=== PATIENT | male | born 1985 | race African-American/Black ===

== ENCOUNTER 2019-01-27 10:05 | Emergency (ER) | payer OTHER ==
[~2019-01-27] VITALS: Ht 188 cm; Wt 81.6 kg
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
[2019-01-27 11:20] VITALS: BP 147/102
== END 2019-01-27 11:20 ==
LOC: EDBD 10:05 → ER FS 10:05
DX: F19.20 Other psychoactive substance dependence, uncomplicated (principal); F22 Delusional disorders
CPT/HCPCS: 99283

== ENCOUNTER 2019-03-24 13:43 | Emergency (ER) | payer OTHER ==
[~2019-03-24] VITALS: Ht 198.1 cm; Wt 68.0 kg
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
[2019-03-24] MEDS ORDERED: ABILIFY (14:31)
--- NOTE | 2019-03-24 14:31 | NUR ---
PT DOES NOT ANSWER MANY QUESTIONS. POLICE ANSWERING SOME QUESTIONS FOR HIM.
[2019-03-24 14:38] VITALS: BP 148/87
== END 2019-03-24 14:38 ==
LOC: EDUNIT# 13:43 → ER FS 13:46
DX: F15.10 Other stimulant abuse, uncomplicated (principal); Z02.89 Encounter for other administrative examinations
CPT/HCPCS: 99281

== ENCOUNTER 2019-03-28 09:06 | Emergency (ER) | payer OTHER ==
[~2019-03-28] VITALS: Ht 198.1 cm; Wt 68.0 kg
[~2019-03-28 09:06] MED LIST: ABILIFY
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
[2019-03-28 09:30] VITALS: BP 178/108
== END 2019-03-28 09:29 ==
LOC: EDUNIT# 09:06 → ER FS 09:08
DX: F15.20 Other stimulant dependence, uncomplicated (principal)
CPT/HCPCS: 99283

== ENCOUNTER 2019-09-20 11:30 | Emergency (ER) | payer OTHER ==
[~2019-09-20] VITALS: Ht 190 cm; Wt 90.0 kg
--- NOTE | 2019-09-20 11:43 | ED General ---
History of Present Illness Date Seen by Provider: Sep 20, 2019 Time Seen by Provider: 11:54 Initial Comments 34-year-old male has been here several times in the last several months, all for episodes of uncontrolled behavior thought likely to be related to substance abuse his behavior is so out of control that he is currently handcuffed and attended by police personnel both [facility] and [facility] all law enforcement and nursing personnel state that that this has happened multiple times in the past Patient is completely uncooperative with attempts to take history he is up in the room pacing about with handcuffs on and the police personnel are standing by Allergies and Home Medications Allergies Coded Allergies: No Known Drug Allergies (Unverified , 03/24/19) Patient Home Medication List Home Medication List Reviewed: Yes Review of Systems Review of Systems Constitutional: no symptoms reported EENTM: no symptoms reported Respiratory: no symptoms reported Cardiovascular: no symptoms reported Genitourinary: no symptoms reported Musculoskeletal: no symptoms reported Skin: no symptoms reported Psychiatric/Neurological: No Symptoms Reported Past Rhrazpx-Tjyhop-Atutob Hx Patient Social History Drug of Choice: history of methamphetamine use Recent Foreign Travel: No Recent Hopitalizations: No Seasonal Allergies Seasonal Allergies: No Past Medical History Respiratory: No Cardiac: No Neurological: No Genitourinary: No Gastrointestinal: No Musculoskeletal: No Endocrine: No HEENT: No Cancer: No Psychosocial: Yes ("CHEMICAL IMBALENCE") Integumentary: No Physical Exam Vital Signs Vital Signs - First Documented 09/20/19 11:30 Temp 36.4 Pulse 112 Resp 18 B/P (MAP) 144/101 (115) Pulse Ox 100 O2 Delivery Room Air Capillary Refill : Height, Weight, BMI Height: 6'6.00" Weight: 150lbs. oz. 68.061332in; BMI Method:Stated General Appearance: WD/WN, Anxious Eyes: Bilateral Eye PERRL, Bilateral Eye EOMI HEENT: Moist Mucous Membranes Respiratory: Lungs Clear Cardiovascular: Regular Rate, Rhythm (tachy) Progress/Results/Core Measures Suspected Sepsis SIRS Temperature: Pulse: Respiratory Rate: Blood Pressure / Mean: Results/Orders Vital Signs/I&O 09/20/19 11:30 Temp 36.4 Pulse 112 Resp 18 B/P (MAP) 144/101 (115) Pulse Ox 100 O2 Delivery Room Air Capillary Refill : Progress Note : Progress Note Patient was asked if he was suffering from any illness or needed any medical attention He never responded with any concerns There is no evidence of acute illness or neurologic or cardiac event police officers are simply requesting that we pronounced him medically cleared for incarceration which has been done several times before Departure Impression Primary Impression: Behavioral disorder Disposition: 01 HOME, SELF-CARE Condition: Improved Departure-Patient Inst. Decision time for Depature: 11:43 Referrals: NO,LOCAL PHYSICIAN (PCP/Family) Primary Care Physician Add. Discharge Instructions: Patient is medically cleared for incarceration SHIMON NIELSON MD Sep 20, 2019 11:43 POS
[2019-09-20 11:50] VITALS: BP 144/101
--- OUTSIDE RECORDS SUMMARY | 2019-10-14 05:32 | XMS REPORT | Continuity of Care Document ---
Author Organization Unknown POS Address Unknown SP Phone Unavailable SP Allergies Active Description Code Type Severity POS Reaction Onset Reported/Identified POS to Patient Clinical Status POS Yes No Known Drug Allergies [id number] Drug SP Unknown N/A 03/24/2019 SP SP Medications There is no data. 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 89 SP FOR OTHER ADMINISTRATIVE EXAMI SP 04/01/2019 YEN KLEIN MD Ot F15. 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 20 SP STIMULANT DEPENDENCE, UNCOMPLICATE SP 09/24/2019 NISREEN SALDAÑA, SHIMON Grigsby Ot F91. 9 SP DISORDER, UNSPECIFIED SP Procedures There is no data. Results There is no data. Encounters ACCT No. Visit Date/Time Discharge Status POS Pt. Type Provider Facility Loc./Un it POS Complaint POS [id number] 09/20/2019 11:31:00 11/01/2 019 11:55:00 SP DIS Outpatient NISREEN SALDAÑA, SHIMON Grigsby [facility] FS MEDICAL CLEARANCE SP [id number] 03/28/2019 09:08:00 09:29:00 SP DIS Outpatient ERNIE SALDAÑA, YEN Jaimes [facility] FS MED CLEARANCE SP [id number] 03/24/2019 13:46:00 14:38:00 SP DIS Emergency MAHI GOMEZ DO [facility] ER FS BROUGHT IN BY POLICE - MED E BULL [id number] 01/27/2019 10:05:00 11:20:00 SP DIS Emergency BETSEY REILLY DO [facility] ER FS BROUGHT IN BY POLICE - MEDIC AL SP
== END 2019-09-20 11:55 | disposition home or self-care (01) ==
LOC: EDUNIT# 11:30 → ER FS 11:31
DX: F91.9 Conduct disorder, unspecified (principal)
CPT/HCPCS: 99283

== ENCOUNTER 2019-11-19 12:23 | Observation (INO) | payer OTHER ==
[~2019-11-19] VITALS: Ht 190 cm; Wt 90.0 kg
--- NOTE | 2019-11-19 12:32 | ED General ---
General Source of Information: Patient, Police Exam Limitations: No Limitations History of Present Illness Date Seen by Provider: Nov 19, 2019 Time Seen by Provider: 12:22 Initial Comments The patient is a 34-year-old male well-known to this emergency department who presents for evaluation after behaving erratically. The patient is a known methamphetamine user admits to use earlier today. Per police he was bothering people by running around in the street. He denies trying to hurt himself. Police state they have seen him and exactly the same state after methamphetamine abuse. The patient states he feels good and has no complaints. He is here for medical clearance before being taken [facility]. Timing/Duration: 4-6 Hours Severity: Moderate Associated Systoms: Denies Symptoms Allergies and Home Medications Allergies Coded Allergies: No Known Drug Allergies (Unverified , 03/24/19) Patient Home Medication List Home Medication List Reviewed: Yes Review of Systems Review of Systems Constitutional: no symptoms reported EENTM: no symptoms reported Respiratory: no symptoms reported Cardiovascular: no symptoms reported Gastrointestinal: no symptoms reported Genitourinary: no symptoms reported Musculoskeletal: no symptoms reported Skin: no symptoms reported Psychiatric/Neurological: No Symptoms Reported Hematologic/Lymphatic: No Symptoms Reported Immunological/Allergic: no symptoms reported All Other Systems Reviewed Negative Unless Noted: Yes Past Muaecbr-Tmokzj-Expwpe Hx Past Med/Social Hx: Reviewed Nursing Past Med/Soc Hx Patient Social History Drug of Choice: history of methamphetamine use 2nd Hand Smoke Exposure: No Recent Foreign Travel: No Recent Hopitalizations: No Seasonal Allergies Seasonal Allergies: No Past Medical History Respiratory: No Cardiac: No Neurological: No Genitourinary: No Gastrointestinal: No Musculoskeletal: No Endocrine: No HEENT: No Cancer: No Psychosocial: Yes ("CHEMICAL IMBALENCE") Integumentary: No Physical Exam Vital Signs Vital Signs - First Documented 11/19/19 12:35 Temp 36.0 Pulse 101 Resp 24 B/P (MAP) 143/108 (120) Pulse Ox 96 Capillary Refill : Height, Weight, BMI Height: 6'6.00" Weight: 150lbs. oz. 68.242799ba; 24.00 BMI Method:Stated General Appearance: No Apparent Distress, WD/WN, Anxious HEENT: PERRL/EOMI, Normal ENT Inspection Neck: Full Range of Motion, Non Tender Respiratory: Lungs Clear, Normal Breath Sounds, No Accessory Muscle Use, No Respiratory Distress Cardiovascular: No Edema, No Murmur, Tachycardia (pt is running in place in the room and admits to recent meth use) Gastrointestinal: Normal Bowel Sounds, Non Tender, Soft Extremity: Normal Capillary Refill Neurologic/Psychiatric: Alert, No Motor/Sensory Deficits, Normal Mood/Affect Skin: Normal Color, Warm/Dry Progress/Results/Core Measures Suspected Sepsis SIRS Temperature: Pulse: Respiratory Rate: Laboratory Tests 11/19/19 13:20: White Blood Count 6.8 Blood Pressure / Mean: Laboratory Tests 11/19/19 13:20: Creatinine 1.13, Platelet Count 329, Total Bilirubin 0.2 Results/Orders Lab Results Laboratory Tests Test 11/19/19 13:20 11/19/19 15:16 Range/Units White Blood Count 6.8 4.3-11.0 10^3/uL Red Blood Count 5.01 4.35-5.85 10^6/uL Hemoglobin 14.1 13.3-17.7 G/DL Hematocrit 43 40-54 % Mean Corpuscular Volume 86 80-99 FL Mean Corpuscular Hemoglobin 28 25-34 PG Mean Corpuscular Hemoglobin Concent 33 32-36 G/DL Red Cell Distribution Width 12.9 10.0-14.5 % Platelet Count 329 130-400 10^3/uL Mean Platelet Volume 10.0 7.4-10.4 FL Neutrophils (%) (Auto) 46 42-75 % Lymphocytes (%) (Auto) 43 12-44 % Monocytes (%) (Auto) 9 0-12 % Eosinophils (%) (Auto) 1 0-10 % Basophils (%) (Auto) 1 0-10 % Neutrophils # (Auto) 3.1 1.8-7.8 X 10^3 Lymphocytes # (Auto) 2.9 1.0-4.0 X 10^3 Monocytes # (Auto) 0.6 0.0-1.0 X 10^3 Eosinophils # (Auto) 0.0 0.0-0.3 10^3/uL Basophils # (Auto) 0.1 0.0-0.1 10^3/uL Sodium Level 141 135-145 MMOL/L Potassium Level 3.2 L 3.6-5.0 MMOL/L Chloride Level 102 98-107 MMOL/L Carbon Dioxide Level 21 21-32 MMOL/L Anion Gap 18 H 5-14 MMOL/L Blood Urea Nitrogen 9 7-18 MG/DL Creatinine 1.13 0.60-1.30 MG/DL Estimat Glomerular Filtration Rate > 60 BUN/Creatinine Ratio 8 Glucose Level 127 H 70-105 MG/DL Calcium Level 9.6 8.5-10.1 MG/DL Corrected Calcium 8.5-10.1 MG/DL Total Bilirubin 0.2 0.1-1.0 MG/DL Aspartate Amino Transf (AST/SGOT) 21 5-34 U/L Alanine Aminotransferase (ALT/SGPT) 20 0-55 U/L Alkaline Phosphatase 82 40-136 U/L Total Protein 8.2 6.4-8.2 GM/DL Albumin 4.6 H 3.2-4.5 GM/DL Salicylates Level < 5.0 L 5.0-20.0 MG/DL Acetaminophen Level < 10 L 10-30 UG/ML Serum Alcohol < 10 <10 MG/DL Urine Color YELLOW Urine Clarity CLEAR Urine pH 6.0 5-9 Urine Specific Spring 1.010 L 1.016-1.022 Urine Protein NEGATIVE NEGATIVE Urine Glucose (UA) NEGATIVE NEGATIVE Urine Ketones NEGATIVE NEGATIVE Urine Nitrite NEGATIVE NEGATIVE Urine Bilirubin NEGATIVE NEGATIVE Urine Urobilinogen 0.2 < = 1.0 MG/DL Urine Leukocyte Esterase NEGATIVE NEGATIVE Urine RBC (Auto) NEGATIVE NEGATIVE Urine RBC NONE /HPF Urine WBC RARE /HPF Urine Squamous Epithelial Cells 0-2 /HPF Urine Crystals NONE /LPF Urine Bacteria NONE /HPF Urine Casts NONE /LPF Urine Mucus SMALL H /LPF Urine Culture Indicated NO Urine Opiates Screen NEGATIVE NEGATIVE Urine Oxycodone Screen NEGATIVE NEGATIVE Urine Methadone Screen NEGATIVE NEGATIVE Urine Propoxyphene Screen NEGATIVE NEGATIVE Urine Barbiturates Screen NEGATIVE NEGATIVE Ur Tricyclic Antidepressants Screen NEGATIVE NEGATIVE Urine Phencyclidine Screen NEGATIVE NEGATIVE Urine Amphetamines Screen POSITIVE H NEGATIVE Urine Methamphetamines Screen POSITIVE H NEGATIVE Urine Benzodiazepines Screen NEGATIVE NEGATIVE Urine Cocaine Screen NEGATIVE NEGATIVE Urine Cannabinoids Screen POSITIVE H NEGATIVE My Orders Orders - PATRICIA CHAMPAGNE DO Ua Culture If Indicated (11/19/19 13:08) Cbc With Automated Diff (11/19/19 13:08) Comprehensive Metabolic Panel (11/19/19 13:08) Alcohol (11/19/19 13:08) Drug Screen Stat (Urine) (11/19/19 13:08) Acetaminophen (11/19/19 13:08) Salicylate (11/19/19 13:08) Ekg Tracing (11/19/19 13:08) Bh Status Checks/Observation Q15M (11/19/19 13:08) Vital Signs/I&O 11/19/19 12:35 Temp 36.0 Pulse 101 Resp 24 B/P (MAP) 143/108 (120) Pulse Ox 96 Capillary Refill : Progress Note : Progress Note @1425 - Case d/w Dr. Foss for admission at [facility]. @1435 - Case d/w [employer]age Shift Manager for additional details on sitter need. She states she will speak with Dr. Foss and call back @1500 - Dr. Foss accepts the transfer. Waiting on sitter which is expected at 1900. ECG Initial ECG Impression Date: Nov 19, 2019 Initial ECG Impression Time: 13:29 Initial ECG Rhythm: Normal Sinus Comment Normal sinus rhythm, rate of 80, normal axis, no acute ischemic findings noted, no STEMI, reviewed and interpreted by myself Departure Impression Primary Impression: Methamphetamine abuse Additional Impressions: Acute psychosis Hypokalemia Disposition: 09 ADMITTED INPATIENT Condition: Stable Departure-Patient Inst. Referrals: NO,LOCAL PHYSICIAN (PCP/Family) Primary Care Physician PATRICIA CHAMPAGNE DO Nov 19, 2019 12:32
--- NOTE | 2019-11-19 13:28 | NUR ---
patient refusing to provide a urine sample
[2019-11-19 13:29] LABS: HEMATOCRIT 43 % (40-54); HEMOGLOBIN 14.1 G/DL (13.3-17.7); MEAN CORPUSCULAR HEMOGLOBIN 28 PG (25-34); MEAN CORPUSCULAR HGB CONC 33 G/DL (32-36); MEAN CORPUSCULAR VOLUME 86 FL (80-99); PLATELET COUNT 329 10^3/uL (130-400); RED CELL DISTRIBUTION WIDTH 12.9 % (10.0-14.5); WHITE BLOOD COUNT 6.8 10^3/uL (4.3-11.0)
[2019-11-19 13:30] LABS: BASOPHILS # (AUTO) 0.1 10^3/uL (0.0-0.1); BASOPHILS % (AUTO) 1 % (0-10); EOSINOPHILS % (AUTO) 1 % (0-10); LYMPHOCYTES # (AUTO) 2.9 X 10^3 (1.0-4.0); LYMPHOCYTES % (AUTO) 43 % (12-44); MONOCYTES # (AUTO) 0.6 X 10^3 (0.0-1.0); MONOCYTES % (AUTO) 9 % (0-12); NEUTROPHILS # (AUTO) 3.1 X 10^3 (1.8-7.8); NEUTROPHILS % (AUTO) 46 % (42-75)
[2019-11-19 14:00] LABS: BUN/CREATININE RATIO 8; CARBON DIOXIDE 21 MMOL/L (21-32); CHLORIDE 102 MMOL/L (98-107); CREATININE SERUM 1.13 MG/DL (0.60-1.30); GFR ESTIMATED > 60; POTASSIUM 3.2 MMOL/L (3.6-5.0); SODIUM 141 MMOL/L (135-145)
[2019-11-19 14:01] LABS: ALANINE AMINOTRANSFERASE 20 U/L (0-55); ALBUMIN 4.6 GM/DL (3.2-4.5); ALKALINE PHOSPHATASE 82 U/L (40-136); BILIRUBIN,TOTAL 0.2 MG/DL (0.1-1.0); CALCIUM 9.6 MG/DL (8.5-10.1); GLUCOSE 127 MG/DL (70-105); SALICYLATE < 5.0 MG/DL (5.0-20.0); TOTAL PROTEIN 8.2 GM/DL (6.4-8.2)
[2019-11-19 14:02] LABS: ACETAMINOPHEN < 10 UG/ML (10-30)
--- NOTE | 2019-11-19 15:40 | NUR ---
Patient lying on mattress, resting quietly at this time.
[2019-11-19 15:45] LABS: BILIRUBIN,URINE NEGATIVE (NEGATIVE); CLARITY,URINE CLEAR; COLOR,URINE YELLOW; GLUCOSE, URINE (UA) NEGATIVE (NEGATIVE); KETONES,URINE NEGATIVE (NEGATIVE); LEUKOCYTE ESTERASE ,URINE NEGATIVE (NEGATIVE); NITRITE,URINE NEGATIVE (NEGATIVE); PROTEIN,URINE NEGATIVE (NEGATIVE); SQUAMOUS EPITHELIAL CELL,UR 0-2 /HPF; WBC,URINE RARE /HPF
[2019-11-19 15:50] LABS: AMPHETAMINE SCREEN, URINE POSITIVE (NEGATIVE); BARBITURATE SCREEN URINE NEGATIVE (NEGATIVE); BENZODIAZEPINES SCREEN URINE NEGATIVE (NEGATIVE); CANNABINOID SCREEN, URINE POSITIVE (NEGATIVE); COCAINE SCREEN URINE NEGATIVE (NEGATIVE); METHADONE STAT NEGATIVE (NEGATIVE); METHAMPHETAMINE SCREEN URINE S POSITIVE (NEGATIVE); OPIATE SCREEN URINE NEGATIVE (NEGATIVE); OXYCODONE STAT NEGATIVE (NEGATIVE); PROPOXYPHENE STAT NEGATIVE (NEGATIVE); TRICYCLIC ANTIDEPRESSANTS SCRE NEGATIVE (NEGATIVE)
--- NOTE | 2019-11-19 15:51 | NUR ---
Received call from tyler Real, stating the patient will be going to room 415 but cannot be transferred until 7 p.m due to there not being a sitter until that time. Notified Dr Duarte.
--- NOTE | 2019-11-19 16:02 | NUR ---
Police officers have left at this time with instructions to call them back if the patient starts acting out or tries to leave.
--- NOTE | 2019-11-19 16:11 | NUR ---
Patient requesting to go outside and smoke. Informed that smoking was against policy and offered patient nicotine patch. Declined patch at this time.
--- NOTE | 2019-11-19 19:37 | NUR ---
pt to restroom without assistance, ems here for transport.
[2019-11-19 20:25] VITALS: BP 124/84
[2019-11-19] MEDS ORDERED: ACETAMINOPHEN 325 MG TABLET PO PRN (20:30)
[2019-11-19] MEDS ORDERED: DOCUSATE SODIUM 100 MG (COLACE) CAP PO PRN (20:30)
[2019-11-19] MEDS ORDERED: LORazepam INJ 2 MG/ML (ATIVAN) VIAL IM PRN (20:30)
[2019-11-19] MEDS ORDERED: HALOPERIDOL 5 MG/ML (HALDOL) AMP IM PRN (20:30)
[2019-11-19] MEDS ORDERED: guaiFENesin/DM (ROBITUSSIN DM) 10 ML UDC PO PRN (20:30)
[2019-11-19] MEDS ORDERED: ONDANSETRON 4 MG (ZOFRAN) ORAL DISSOLVE TAB PO PRN (20:30)
[2019-11-19] MEDS ORDERED: IBUPROFEN TABLET 200 MG TAB PO PRN (20:30)
[2019-11-19] MEDS ORDERED: diphenhydrAMINE 25 MG TAB (BENADRYL) PO PRN (20:30)
[2019-11-19] MEDS ORDERED: POLYETHYLENE GLYCOL 17 GM (MIRALAX) PACK PO PRN (20:30)
--- NOTE | 2019-11-19 20:30 | NUR ---
FS ED RN, RENAE TODD, REPORTED TO THIS RN THIS THAT THERE IS A NEED FOR SS CONSULT D/T PTS LIVING CONDITIONS. [facility] REPORTS HE IS HOMELESS AT TIMES WHEN NOT LIVING WITH MOTHER IN [place].
[2019-11-19 20:31] VITALS: BP 124/84
--- NOTE | 2019-11-19 21:12 | NUR ---
ROBERTO GEE admitted to room 415-1, with an admitting diagnosis of SUBSTANCE ABUSE, on 11/19/19 from [facility] , accompanied by EMT'S FROM [place]ROBERTO GEE introduced to surroundings, call light, bed controls, phone, TV, temperature control, lights, meal times, smoking policy, visitor policy, side rail policy, bathrooms and showers. Patient Rights given to patient in the handbook. ROBERTO GEE verbalizes understanding that [facility] is not responsible for the loss or damage to any personal effects or valuables that are kept in the patients posession during their hospitalization.
[2019-11-19 23:50] VITALS: BP 122/89
[2019-11-20 04:00] VITALS: BP 126/75
[2019-11-20] MEDS ORDERED: FLU QUADRIvalent (5+ YOA) 2019-2020 (AFLURIA) 0.5 ML IM ONE (07:30)
[2019-11-20 08:00] VITALS: BP 116/70
--- NOTE | 2019-11-20 11:08 | NUR ---
DISC SANDER VOICED THAT SHE WAS PULLING THE ONE ON ONE -- NOTE THAT PT HAS CAME TO DOOR AND FINDS STAFF AT DOORWAY AND WILL RETURN TO ROOM -- THIS RN IS UNSURE PT WILL STAY IN ROOM -- HE IS IN STREET [employer]OTHES
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
[2019-11-20 12:37] VITALS: BP 116/70
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
--- OUTSIDE RECORDS SUMMARY | 2019-12-18 03:42 | XMS REPORT | Continuity of Care Document ---
Author Organization Unknown Address Unknown Phone Unavailable Allergies Active Description Code Type Severity Reaction Onset Reported/Identified Relationship to Patient Clinical Status Yes No Known Drug Allergies [id number] Drug Allergy Unknown N/A 03/24/2019 Medications There [...] 20 OTHER STIMULANT DEPENDENCE, UNCOMPLICATE 04/03/2019 YEN KLEIN MD Ot F15. 20 OTHER STIMULANT DEPENDENCE, [...] Status Pt. Type Provider Facility Loc./Unit Complaint [id number] 11/19/2019 20:25:00 020 12:13:00 DIS Outpatient DANIEL MON DO [facility] 4TH METHAMPHETAMIE ABUSE, A CUTE PSYCOSIS [id number] 09/20/2019 11:31:00 019 11:55:00 DIS Outpatient SHIMON NIELSON MD [facility] FS MEDICAL CLEARANCE [id number] 03/28/2019 09:08:00 019 09:29:00 DIS Outpatient YEN KLEIN MD [facility] FS MED CLEARANCE [id number] 03/24/2019 13:46:00 14:38:00 DIS Emergency MAHI GOMEZ DO [facility] ER FS BROUGHT IN BY POLICE - MED EVAL [id number] 01/27/2019 10:05:00 019 11:20:00 DIS Emergency BETSEY REILLY DO [facility] ER FS BROUGHT IN BY POLICE - MEDICAL SCREENING
== END 2019-11-20 12:13 | disposition home or self-care (01) ==
LOC: EDUNIT# 12:23 → ER FS 12:24 → UNDOADMOB 18:48 → 4TH 18:48 → UNDOADMOB 20:25 → 4TH 20:25 → UNDODISOB 11-20 12:13
PROVIDERS: ADMIT Internal Medicine; ATTEND Internal Medicine
DX: F19.10 Other psychoactive substance abuse, uncomplicated (principal); R45.6 Violent behavior; E87.6 Hypokalemia; F32.9 Major depressive disorder, single episode, unspecified; F20.9 Schizophrenia, unspecified
CPT/HCPCS: 36415; 80053; 80306; 80320; 80329; 81000; 85025; 90471; 93005; G0378

== ENCOUNTER 2020-04-08 14:16 | Emergency (ER) | payer OTHER ==
[~2020-04-08] VITALS: Ht 188 cm; Wt 72.7 kg
[2020-04-08] MEDS ORDERED: LORazepam INJ 2 MG/ML (ATIVAN) VIAL IM ONE (14:30)
[2020-04-08] MEDS ORDERED: HALOPERIDOL 5 MG/ML (HALDOL) AMP IM ONE (14:30)
--- NOTE | 2020-04-08 15:06 | ED General ---
General Chief Complaint: Psych/Social Disorder History of Present Illness Date Seen by Provider: April 08, 2020 Time Seen by Provider: 15:03 Initial Comments Patient presenting to emergency department for evaluation of erratic behavior has he was reportedly running in traffic. He reportedly gets some sort of shot for his mental illness every month and he cut the shot on the seventh but there is a high suspicion that he use methamphetamines as he asked this way whenever he uses meth. Looking through the records it appears that he has been seen for this same exact issue multiple times in the past. Several times in police just wanted him medically cleared for incarceration but the police officers present here today are asking for him to be psychiatrically screened. I asked what their concern was and they think that he needs to be placed psychiatrically. I explained that generally if it is substance abuse induced behavior Psychiatry cannot help them. Patient is having to be restrained by police and patient is speaking erratically. (BETSEY REILLY DO) Allergies and Home Medications Allergies Coded Allergies: No Known Drug Allergies (Unverified , 03/24/19) Patient Home Medication List Home Medication List Reviewed: Yes (BETSEY REILLY DO) Review of Systems Review of Systems Will not answer review of systems questions (BETSEY REILLY DO) Constitutional: other (acute psychosis from methamphetamine use) EENTM: see HPI, no symptoms reported Respiratory: no symptoms reported Cardiovascular: no symptoms reported Gastrointestinal: no symptoms reported Genitourinary: no symptoms reported Musculoskeletal: no symptoms reported, muscle twitching (from meth use) Skin: dryness (chronic issues) Psychiatric/Neurological: Other (acute on chronic psychosis exacerbated by meth use) Hematologic/Lymphatic: No Symptoms Reported Immunological/Allergic: no symptoms reported (JASVIR LIANG DO) Past Xmzatmc-Dvzsux-Pugmld Hx Past Med/Social Hx: Reviewed Nursing Past Med/Soc Hx (JASVIR LIANG DO) Patient Social History Drug of Choice: history of methamphetamine use 2nd Hand Smoke Exposure: No Recent Hopitalizations: No (BETSEY REILLY DO) Alcohol Use: Occasionally Uses Recreational Drug Use: Yes Smoking Status: Current Someday Smoker 2nd Hand Smoke Exposure: Yes Recent Foreign Travel: No Contact w/Someone Who Travel: No Recent Infectious Disease Expo: No Recent Hopitalizations: No (AJSVIR LIANG DO) Seasonal Allergies Seasonal Allergies: No (BETSEY REILLY DO) Past Medical History Surgeries: No Respiratory: No Cardiac: No Neurological: No Genitourinary: No Gastrointestinal: No Musculoskeletal: No Endocrine: No HEENT: No Cancer: No Psychosocial: Yes ("CHEMICAL IMBALENCE") Bipolar, Schizophrenia, Violent Behavior Integumentary: No (BETSEY REILLY DO) Surgeries: No Respiratory: No Currently Using CPAP: No Currently Using BIPAP: No Cardiac: No Neurological: No (but has meth use) Reproductive Disorders: No Sexually Transmitted Disease: No Gastrointestinal: No Musculoskeletal: Yes (muscle tremors from meth use) Endocrine: No Are Your Blood Sugars Over 250: No HEENT: No Cancer: No Psychosocial: Yes Schizophrenia (chronic psychosis in manager terminal care) Integumentary: No (JASVIR LIANG DO) Physical Exam Vital Signs Vital Signs - First Documented (JASVIR LIANG DO) Vital Signs Capillary Refill : (BETSEY REILLY DO) Height, Weight, BMI Height: 6'6.00" Weight: 150lbs. oz. 68.242890bc; 24.93 BMI Method:Stated General Appearance: No Apparent Distress, Anxious Eyes: Bilateral Eye EOMI Neck: Supple Respiratory: No Respiratory Distress Cardiovascular: No Edema Back: Normal Inspection Extremity: Normal Range of Motion Neurologic/Psychiatric: Alert Skin: Warm/Dry (BETSEY REILLY DO) Progress/Results/Core Measures Suspected Sepsis SIRS Temperature: Pulse: Respiratory Rate: Blood Pressure / Mean: (BETSEY REILLY DO) Results/Orders Lab Results Laboratory Tests Test 04/08/20 10:14 Range/Units Urine Color YELLOW Urine Clarity CLEAR Urine pH 6.5 5-9 Urine Specific Brickeys 1.020 1.016-1.022 Urine Protein NEGATIVE NEGATIVE Urine Glucose (UA) NEGATIVE NEGATIVE Urine Ketones NEGATIVE NEGATIVE Urine Nitrite NEGATIVE NEGATIVE Urine Bilirubin NEGATIVE NEGATIVE Urine Urobilinogen 0.2 < = 1.0 MG/DL Urine Leukocyte Esterase NEGATIVE NEGATIVE Urine RBC (Auto) NEGATIVE NEGATIVE Urine RBC NONE /HPF Urine WBC NONE /HPF Urine Squamous Epithelial Cells 0-2 /HPF Urine Crystals NONE /LPF Urine Bacteria NONE /HPF Urine Casts NONE /LPF Urine Mucus SMALL H /LPF Urine Culture Indicated NO Urine Opiates Screen NEGATIVE NEGATIVE Urine Oxycodone Screen NEGATIVE NEGATIVE Urine Methadone Screen NEGATIVE NEGATIVE Urine Propoxyphene Screen NEGATIVE NEGATIVE Urine Barbiturates Screen NEGATIVE NEGATIVE Ur Tricyclic Antidepressants Screen NEGATIVE NEGATIVE Urine Phencyclidine Screen NEGATIVE NEGATIVE Urine Amphetamines Screen POSITIVE H NEGATIVE Urine Methamphetamines Screen POSITIVE H NEGATIVE Urine Benzodiazepines Screen POSITIVE H NEGATIVE Urine Cocaine Screen NEGATIVE NEGATIVE Urine Cannabinoids Screen POSITIVE H NEGATIVE (JASVIR LIANG DO) Vital Signs/I&O Capillary Refill : (BETSEY REILLY DO) Progress Note : Progress Note Patient was given Ativan and Haldol for his agitation. I will get psychiatric screening labs and reassess. Patient medically cleared from my standpoint. [facility] psych screener, watched him on zoom and plans for involuntary hold. Patient is #12 on list at [place]. PD will plan on alternating watch on him while awaiting placement. Transfer of care to Dr. Molina at 1800. (BETSEY REILLY DO) Progress Note : Time: 06:02 Progress Note Transfer report from Dr. Molina to Dr. Liang at 0600. Patient is being monitored by the [place] [employer]. He is waiting for admission to [facility]. He was 12TH ON the list during Dr. Molina's rotation. Patient denies any medical issues at this time. He walked back and forth to the bathroom without difficulty. Patient remains medically stable and we await psychiatric admission patient has eaten his dinner from last night and is currently eating his breakfast. 9:52 AM Reece [facility] called and reported that he would like to reevaluate the patient. He will evaluate the patient with a robot. Patient has calm down after receiving 5 mg of Haldol 2 mg of lorazepam yesterday. Patient has been resting cooperative nonagitated and hungry since that time. If Mr. Roberson and the psychiatrist on-call feel the patient can be discharged we will do so. They'll follow-up should be arranged. (JASVIR LIANG DO) Departure Impression Primary Impression: Drug abuse, amphetamine type Additional Impression: Psychosis Disposition: 01 HOME, SELF-CARE Condition: Improved Departure-Patient Inst. Decision time for Depature: 11:40 (JASVIR LIANG DO) Referrals: NO,LOCAL PHYSICIAN (PCP) Primary Care Physician Patient Instructions: Methamphetamine Add. Discharge Instructions: 34 yr old male has been stabilized over the past two days. Pt was re evaluated by Aristeo Roberson via the robot MH eval process. Pt is not currently psychotic and has been deemed stable for DC. Pt therapist Idalia Darling will come to the ED and escort the patient to the clinic for further care and stabilization. Pt was positive for Meth and metabolites and benzo given in the ED. Pt also po sitive for MJ metabolites. Pt will continue care in . Primary care services also recommended. All discharge instructions reviewed with patient and/or family. Voiced understanding. BETSEY REILLY DO April 08, 2020 15:06 JASVIR LIANG DO April 09, 2020 06:52
--- NOTE | 2020-04-08 15:15 | NUR ---
Lauren Zhu (training systems officer) was called at this time. Pt refused to give urine, allow labs to be drawn, until he speaks to her. She was called and was put on speaker phone. Officer held phone and let pt speak to Lauren. Pt was still not being cooperative and give specimens.
--- NOTE | 2020-04-08 15:31 | NUR ---
Reece with [facility] was called at this time. Eladio Sutherland with [facility] spoke with Reece.
--- NOTE | 2020-04-08 15:48 | NUR ---
Reece wants to observe patient via zoom. Officer is holding the laptop for patient.
--- OUTSIDE RECORDS SUMMARY | 2020-04-08 17:25 | XMS REPORT | Continuity of Care Document ---
Author Organization Unknown Address Unknown Phone Unavailable Allergies Active Description Code Type Severity Reaction Onset Reported/Identified Relationship to Patient Clinical Status Yes No Known Drug Allergies [id number] Drug Allergy Unknown N/A 03/24/2019 Medications There [...] 89 ENCOUNTER FOR OTHER ADMINISTRATIVE EXAMI 04/01/2019 YEN KLEIN MD Ot F15. 20 OTHER [...] TIVE Urine propoxyphene detection NEGATIVE N EGATIVE LIPID PANEL - 12/26/19 09:52 CHOLESTEROL, TOTAL 161 mg/dL <200 HDL CHOLESTEROL 50 mg/dL > OR = 40 TRIGLYCERIDES 84 mg/dL <150 LDL-CHOLESTEROL 94 mg/dL (calc) NRG CHOL/HDLC RATIO 3.2 (calc) <5.0 NON HDL CHOLESTEROL 111 mg/dL (calc) <13 0 CMP - 12/26/19 09:52 GLUCOSE 78 mg/dL 65-99 UREA NITROGEN (BUN) 13 mg/dL 7-25 CREATININE 1.16 mg/dL 0.60-1.35 eGFR NON-AFR. THAI 82 mL/min/1.73m2 > OR = 60 eGFR 95 mL/min/1.73m2 > OR = 60 BUN/CREATININE RATIO NOT APPLICABLE (calc) 6-22 SODIUM 138 mmol/L 135-146 POTASSIUM 3.4 mmol/L 3.5-5.3 CHLORIDE 98 mmol/L 98-110 CARBON DIOXIDE 26 mmol/L 20-32 CALCIUM 10.1 mg/dL 8.6-10.3 PROTEIN, TOTAL 8.0 g/dL 6.1-8.1 ALBUMIN 4.8 g/dL 3.6-5.1 GLOBULIN 3.2 g/dL (calc) 1.9-3.7 ALBUMIN/GLOBULIN RATIO 1.5 (calc) 1.0-2. 5 BILIRUBIN, TOTAL 1.0 mg/dL 0.2-1.2 ALKALINE PHOSPHATASE 95 U/L 36-130 AST 16 U/L 10-40 ALT 14 U/L 9-46 CBC - 12/26/19 09:52 WHITE BLOOD CELL COUNT 6.3 Thousand/uL 3 .8-10.8 RED BLOOD CELL COUNT 5.10 Million/uL 4.2 0-5.80 HEMOGLOBIN 14.5 g/dL 13.2-17.1 HEMATOCRIT 42.3 % 38.5-50.0 MCV 82.9 fL 80.0-100.0 MCH 28.4 pg 27.0-33.0 MCHC 34.3 g/dL 32.0-36.0 RDW 12.7 % 11.0-15.0 PLATELET COUNT 340 Thousand/uL 140-400 MPV 10.5 fL 7.5-12.5 ABSOLUTE NEUTROPHILS 2867 cells/uL 1500- 7800 ABSOLUTE LYMPHOCYTES 2690 cells/uL 850-3 900 ABSOLUTE MONOCYTES 624 cells/uL 200-950 ABSOLUTE EOSINOPHILS 50 cells/uL 15-500 ABSOLUTE BASOPHILS 69 cells/uL 0-200 NEUTROPHILS 45.5 % NRG LYMPHOCYTES 42.7 % NRG MONOCYTES 9.9 % NRG EOSINOPHILS 0.8 % NRG BASOPHILS 1.1 % NRG TSH - 12/26/19 09:52 TSH 1.53 mIU/L 0.40-4.50 Encounters ACCT No. Visit Date/Time Discharge Status Pt. Type Provider Facility Loc./Unit Complaint [id number] 01/28/2020 11:40:00 01/28/2020 23:59: 59 CLS Outpatient SELF, CELY Mejia [facility] [id number] 12/26/2019 08:30:00 Document Registration [id number] 11/19/2019 20:25:00 020 12:13:00 DIS Inpatient PENSACOLA DODANIEL [facility] 4TH METHAMPHETAMIE ABUSE, A CUTE PSYCOSIS [id number] 09/20/2019 11:31:00 11:55:00 DIS Outpatient NISREEN SALDAÑA, SHIMON Grigsby [facility] ER FS MEDICAL CLEARANCE [id number] 03/28/2019 09:08:00 09:29:00 DIS Outpatient ERNIE SALDAÑA, YEN Jaimes [facility] ER FS MED CLEARANCE [id number] 03/24/2019 13:46:00 14:38:00 DIS Emergency MAHI GOMEZ DO [facility] ER FS BROUGHT IN BY POLICE - MED EVAL [id number] 01/27/2019 10:05:00 11:20:00 DIS Emergency BETSEY REILLY DO [facility] ER FS BROUGHT IN BY POLICE - MEDICAL SCREENING
--- NOTE | 2020-04-08 19:31 | NUR ---
PT. SLEEPING, AROUSES EASILY. BP 101/66, TEMP 36.3, HEART RATE 74, SATS 99, RESP. 16. POLICE AT THE BEDSIDE. PT. REQUESTING FOOD AND HE RECEIVED THE FOOD BY THE POLICE.
--- NOTE | 2020-04-09 01:33 | NUR ---
PT. WAS UP TO THE BATHROOM, GIVEN A WARM BLANKET AND A MEAL AT THIS TIME. PT. IS COOPERATIVE AT THIS TIME.
--- NOTE | 2020-04-09 05:21 | NUR ---
PT. SLEEPING WITH NO COMPLAINTS.
--- NOTE | 2020-04-09 06:47 | NUR ---
PT. UP TO THE BATHROOM WITH ASSISTANCE FROM THE POLICE. NO COMPLAINTS
--- NOTE | 2020-04-09 10:19 | NUR ---
Reece rescreened pt. He wants pt to talk to social psychologist Shantel Darling and she will call Reece back after talking with pt.
[2020-04-09 10:27] LABS: BILIRUBIN,URINE NEGATIVE (NEGATIVE); CLARITY,URINE CLEAR; COLOR,URINE YELLOW; GLUCOSE, URINE (UA) NEGATIVE (NEGATIVE); KETONES,URINE NEGATIVE (NEGATIVE); LEUKOCYTE ESTERASE ,URINE NEGATIVE (NEGATIVE); NITRITE,URINE NEGATIVE (NEGATIVE); PH,URINE 6.5 (5-9); PROTEIN,URINE NEGATIVE (NEGATIVE); SQUAMOUS EPITHELIAL CELL,UR 0-2 /HPF
[2020-04-09 10:38] LABS: AMPHETAMINE SCREEN, URINE POSITIVE (NEGATIVE); BARBITURATE SCREEN URINE NEGATIVE (NEGATIVE); BENZODIAZEPINES SCREEN URINE POSITIVE (NEGATIVE); CANNABINOID SCREEN, URINE POSITIVE (NEGATIVE); COCAINE SCREEN URINE NEGATIVE (NEGATIVE); METHADONE STAT NEGATIVE (NEGATIVE); METHAMPHETAMINE SCREEN URINE S POSITIVE (NEGATIVE); OPIATE SCREEN URINE NEGATIVE (NEGATIVE); OXYCODONE STAT NEGATIVE (NEGATIVE); PROPOXYPHENE STAT NEGATIVE (NEGATIVE); TRICYCLIC ANTIDEPRESSANTS SCRE NEGATIVE (NEGATIVE)
--- NOTE | 2020-04-09 10:47 | NUR ---
Reece called and has made follow-up appointments. He will get safety plan ready and fax it to me. He wants me to go over safety plan with patient.
--- NOTE | 2020-04-09 11:27 | NUR ---
Reece peter and Shantel will have appointment with Shantel at 1300 today. She is going to pick him up a little after noon. He will also have appointment with his therapsit Nicole tomorrow at 0900.
--- NOTE | 2020-04-09 11:37 | NUR ---
Pt signed safety plan and faxed it back to Reece
[2020-04-09 12:39] VITALS: BP 0/0
--- NOTE | 2020-04-09 12:40 | NUR ---
Pt refused to give vital signs at sc. Pt is getting a ride with cyanide case hardener, Shantel Darling.
--- NOTE | 2020-04-09 12:54 | NUR ---
Shantel was here at this time. Report given to her and patient left with Shantel.
== END 2020-04-09 12:36 | disposition home or self-care (01) ==
LOC: EDUNIT# 14:16 → ER FS 14:17
DX: F15.10 Other stimulant abuse, uncomplicated (principal); F28 Other psychotic disorder not due to a substance or known physiological condition; F17.200 Nicotine dependence, unspecified, uncomplicated; Z86.59 Personal history of other mental and behavioral disorders
CPT/HCPCS: 80306; 81000; 99284

== ENCOUNTER 2020-06-06 13:23 | Emergency (ER) | payer OTHER ==
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
[2020-06-06 13:50] VITALS: BP 168/97
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
== END 2020-06-06 13:50 ==
LOC: EDUNIT# 13:23 → ER FS 13:24
DX: Z13.30 Encounter for screening examination for mental health and behavioral disorders, unspecified (principal); Z77.22 Contact with and (suspected) exposure to environmental tobacco smoke (acute) (chronic)
CPT/HCPCS: 99283

== ENCOUNTER 2022-12-17 10:41 | Emergency (ER) | payer MEDICAID, OTHER ==
[~2022-12-17] VITALS: Ht 185.5 cm; Wt 79.5 kg
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
[2022-12-17] MEDS ORDERED: KETOROLAC 30 MG/ML VIAL IM ONE (11:15)
--- NOTE | 2022-12-17 11:22 | Diagnostic Imaging Report ---
Right-sided chest pain. Frontal chest and oblique views of the right ribs performed. A frontal chest and bilateral ribs performed. Lungs clear. No failure, effusion or pneumothorax. Hilar and mediastinal contours were normal. No left pleural hematoma. No rib fracture deformity or bony destructive osseous lesion. IMPRESSION: Unremarkable frontal chest and left rib series. Dictated by: Dictated on workstation # [id number]
[2022-12-17 12:12] VITALS: BP 124/68
== END 2022-12-17 12:12 | disposition home or self-care (01) ==
LOC: EDUNIT# 10:41 → ER FS 10:44
DX: S29.011A Strain of muscle and tendon of front wall of thorax, initial encounter (principal); Z28.310 Unvaccinated for COVID-19; W01.0XXA Fall on same level from slipping, tripping and stumbling without subsequent striking against object, initial encounter
CPT/HCPCS: 71111

== ENCOUNTER 2023-03-20 11:28 | Emergency (ER) | payer MEDICAID, OTHER ==
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
[2023-03-20 11:59] VITALS: BP 170/77
== END 2023-03-20 11:42 | disposition home or self-care (01) ==
LOC: EDUNIT# 11:28 → ER FS 11:29
DX: Z02.79 Encounter for issue of other medical certificate (principal); R45.1 Restlessness and agitation; S60.812A Abrasion of left wrist, initial encounter; S60.811A Abrasion of right wrist, initial encounter; Y04.0XXA Assault by unarmed brawl or fight, initial encounter
CPT/HCPCS: 99285